=== PATIENT | female | born 1975 | race African-American/Black ===

== ENCOUNTER 2024-04-28 22:30 | Inpatient (IN) | payer OTHER ==
[~2024-04-28] VITALS: Ht 160 cm; Wt 112.0 kg
[2024-04-29] VITALS: BP 155/67; PULSE 78; RESP 18; TEMP 98.2; O2SAT 100
[2024-04-29 01:26] LABS: EOSINOPHILS % 0.5 % (0.0-6.0); LYMPHOCYTES # (AUTO) 1.1 (1.0-3.2); LYMPHOCYTES % 25.4 % (18.0-39.1); MEAN CORPUSCULAR HEMOGLOBIN 15.8 pg (28-32); MEAN CORPUSCULAR HGB CONC 22.7 g/dL (31-35); MEAN CORPUSCULAR VOLUME 69.7 fL (81-99); MONOCYTES # (AUTO) 0.2 (0.2-0.8); NEUTROPHILS # (AUTO) 2.9 (2.1-6.9); NEUTROPHILS % 69.6 % (38.7-80.0); PLATELET COUNT 228 x10e3/uL (140-360); RED BLOOD COUNT 2.21 x10e6/uL (3.6-5.1); RED CELL DISTRIBUTION WIDTH 20.3 % (11.7-14.4); WHITE BLOOD COUNT 4.22 x10e3/uL (4.8-10.8)
[2024-04-29 01:36] LABS: ALBUMIN 3.8 g/dL (3.5-5.0); ALBUMIN/GLOBULIN RATIO 1.4 (0.8-2.0); ALKALINE PHOSPHATASE 54 IU/L (40-150); ANION GAP 13.1 mmol/L (8-16); BILIRUBIN,TOTAL 0.8 mg/dL (0.2-1.2); BLOOD UREA NITROGEN 6 mg/dL (7-26); BUN/CREATININE RATIO 8 (6-25); CALCIUM 8.8 mg/dL (8.4-10.2); CARBON DIOXIDE 21 mmol/L (22-29); CHLORIDE 109 mmol/L (98-107); CREATININE, SERUM 0.75 mg/dL (0.57-1.11); EST GLOMERULAR FILTRATION RATE 97 ML/MIN (>=60); GLUCOSE 105 mg/dL (74-118); POTASSIUM 4.1 mmol/L (3.5-5.1); SODIUM 139 mmol/L (136-145); TOTAL PROTEIN 6.6 g/dL (6.5-8.1)
[2024-04-29 01:40] LABS: HEMATOCRIT 15.4 % (34.2-44.1); HEMOGLOBIN 3.5 g/dL (12.0-16.0)
[2024-04-29 01:42] LABS: ALANINE AMINOTRANSFERASE < 6 IU/L (0-55)
[2024-04-29] MEDS ORDERED: AMLODIPINE BESYL5 MG PO (02:20)
[2024-04-29] MEDS ORDERED: IBUPROFEN800 MG PO (02:20)
[2024-04-29 02:29] VITALS: BP 155/67; PULSE 78; RESP 18; TEMP 98.2; O2SAT 100
[2024-04-29 04:52] LABS: ANISOCYTOSIS MARKED; ELLIPTOCYTE, RBC MODERATE; HYPOCHROMASIA MARKED; MICROCYTOSIS MARKED; OVALOCYTES MODERATE; POIKILOCYTOSIS MARKED; POLYCHROMASIA MODERATE; TEAR DROP CELLS MODERATE
[2024-04-29 04:53] LABS: PLATELET ESTIMATE ADEQUATE; PLATELET MORPHOLOGY COMMENT FEW GIANT; RBC MORPHOLOGY COMMENT ABNORMAL; STOMATOCYTES MODERATE
[2024-04-29 08:00] VITALS: BP 155/67; PULSE 78; RESP 18; TEMP 98.2; O2SAT 100
[2024-04-29 08:09] LABS: BASOPHILS % 0.3 % (0.0-1.0); EOSINOPHILS # (AUTO) 0.1 (0.0-0.4); EOSINOPHILS % 1.5 % (0.0-6.0); LYMPHOCYTES # (AUTO) 0.9 (1.0-3.2); LYMPHOCYTES % 27.3 % (18.0-39.1); MEAN CORPUSCULAR HEMOGLOBIN 18.6 pg (28-32); MEAN CORPUSCULAR HGB CONC 25.1 g/dL (31-35); MEAN CORPUSCULAR VOLUME 74.1 fL (81-99); MONOCYTES # (AUTO) 0.2 (0.2-0.8); MONOCYTES % 5.4 % (4.4-11.3); NEUTROPHILS # (AUTO) 2.2 (2.1-6.9); NEUTROPHILS % 65.2 % (38.7-80.0); PLATELET COUNT 222 x10e3/uL (140-360); RED BLOOD COUNT 2.63 x10e6/uL (3.6-5.1); RED CELL DISTRIBUTION WIDTH 21.4 % (11.7-14.4); WHITE BLOOD COUNT 3.33 x10e3/uL (4.8-10.8)
[2024-04-29 08:19] VITALS: BP 154/67; PULSE 74; RESP 18; O2SAT 98
[2024-04-29 08:20] LABS: HEMATOCRIT 19.5 % (34.2-44.1); HEMOGLOBIN 4.9 g/dL (12.0-16.0)
[2024-04-29] MEDS ORDERED: METOPROLOL TARTRATE INJ 1 MG/ML VIAL IV PRN (08:30)
[2024-04-29] MEDS ORDERED: DOCUSATE SODIUM 100 MG CAP PO PRN (08:30)
[2024-04-29] MEDS ORDERED: SIMETHICONE 80 MG CHEW PO PRN (08:30)
[2024-04-29] MEDS ORDERED: ALBUTEROL/IPRATROPIUM 3 ML NEB NEB PRN (08:30)
[2024-04-29] MEDS ORDERED: ONDANSETRON HCL INJ 2MG/ML 2ML 2 MG/ML VIAL IV PRN (08:30)
[2024-04-29] MEDS ORDERED: ACETAMINOPHEN 325 MG TAB PO PRN (08:30)
[2024-04-29] MEDS: SODIUM CHLORIDE 0.9% 250ML 250 ML IV ONE (08:46)
[2024-04-29] MEDS: SODIUM CHLORIDE 0.9% 250ML 250 ML ONE (08:47)
[2024-04-29 09:05] LABS: CHOL/HDL RATIO 2.8 (3.0-3.6)
[2024-04-29 09:08] LABS: FERRITIN 3.06 ng/mL (4.63-204.00)
[2024-04-29 09:21] LABS: FOLATE 7.9 ng/mL (7.0-15.4)
[2024-04-29 09:25] LABS: THYROID STIMULATING HORMONE 4.143 uIU/mL (0.350-4.940)
[2024-04-29] MEDS: AMLODIPINE BESYLATE 5 MG TAB PO SCH (10:40)
[2024-04-29 10:42] LABS: PLATELET ESTIMATE ADEQUATE
[2024-04-29 10:43] LABS: ANISOCYTOSIS MARKED; HYPOCHROMASIA MARKED; OVALOCYTES MODERATE; PLATELET MORPHOLOGY COMMENT NORMAL; RBC MORPHOLOGY COMMENT ABNORMAL
[2024-04-29 10:44] LABS: MICROCYTOSIS MARKED; TEAR DROP CELLS FEW
[2024-04-29 10:45] LABS: ELLIPTOCYTE, RBC SLIGHT
[2024-04-29 14:07] VITALS: BP 137/66; PULSE 83; RESP 18; TEMP 98.5; O2SAT 100
[2024-04-29 16:34] VITALS: BP 140/79; PULSE 73; RESP 18; TEMP 98.3; O2SAT 100
[2024-04-29] MEDS ORDERED: MELATONIN 3 MG TAB PO PRN (21:00)
== END 2024-04-29 18:13 | disposition left against medical advice (07) | DRG 812 ==
LOC: MED/SURG3 22:59
PROVIDERS: ADMIT Internal Medicine; ATTEND Internal Medicine
PROC: 30233N1 Transfusion of Nonautologous Red Blood Cells into Peripheral Vein, Percutaneous Approach (ICD-10-PCS; principal; 2024-04-29)
DX: D64.9 Anemia, unspecified (principal); Z68.41 Body mass index [BMI] 40.0-44.9, adult; E66.01 Morbid (severe) obesity due to excess calories; Z53.29 Procedure and treatment not carried out because of patient's decision for other reasons; I10 Essential (primary) hypertension; Z13.1 Encounter for screening for diabetes mellitus; Z79.899 Other long term (current) drug therapy
CPT/HCPCS: 36415; 80053; 80061; 82607; 82728; 82746; 83036; 83540; 84443; 84466; 85025; 85045; 86850; 86900; 86920; J2470; J7050; P9016